=== PATIENT | male | born 1985 | race Caucasian/White ===

== ENCOUNTER 2021-12-29 17:02 | Emergency (ER) | payer BC ==
[~2021-12-29] VITALS: Ht 182.9 cm; Wt 129.3 kg
[2021-12-29 17:25] VITALS: BP 141/68
[2021-12-29] MEDS ORDERED: NS 1000ML 1,000 ML IV STA (17:37)
--- NOTE | 2021-12-29 17:40 | ER.PDOC ---
General Chief Complaint: General Complaint Stated Complaint: SOB/RAPID HEART RATE Time seen by MD: 17:39 Source: patient Exam Limitations: no limitations History of Present Illness Initial Comments Shortness of breath with rapid heart rate. Patient feels that she is dehydrated. He has been working in the heat all day without drinking much water. He denies chest pain. He has a headache. No fever or chills. Timing/Duration: 4-6 hours Severity: moderate Activities at Onset: activity/exertion Prior Episodes/Possible Cause: no prior episodes Associated Symptoms: denies symptoms Allergies: Coded Allergies: No Known Allergies (Unverified , 12/29/21) Past Medical History Medical History: no pertinent history Surgical History: no surgical history Family History Significant Family History: no pertinent family hx Social History Smoking: non-smoker Alcohol Use: rarely Drug Use: none Review of Systems Constitutional: no symptoms reported EENTM: no symptoms reported Respiratory: see HPI Cardiovascular: see HPI Gastrointestinal: no symptoms reported Genitourinary: no symptoms reported All Other Systems: Reviewed and Negative Physical Exam General Appearance: No Apparent Distress, WD/WN HEENT: PERRL/EOMI, Normal ENT Inspection, TMs Normal, Pharynx Normal Neck: Non-Tender, Full Range of Motion, Supple, Normal Inspection Respiratory: chest non-tender, lungs clear, normal breath sounds, no respiratory distress, no accessory muscle use Cardiovascular: Normal Peripheral Pulses, Regular Rate, Rhythm, No Edema, No Gallop, No JVD, No Murmur, Tachycardia Gastrointestinal: Normal Bowel Sounds, No Organomegaly, No Pulsatile Mass, Non Tender, Soft Extremities: Normal Range of Motion, Non-Tender, Normal Inspection, No Pedal Edema, No Calf Tenderness, Normal Capillary Refill 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 (12/29/21 17:37) D-Dimer (12/29/21 17:37) Xr Chest 1v (12/29/21 17:37) Ekg-Routine (12/29/21 17:37) Troponin I High Sensitivity (12/29/21 17:37) Lactic Acid(Ml) (12/29/21 17:37) Covid19 Antigen Brittanie Cari (12/29/21 17:37) 0.9 % Sodium Chloride (Ns 1000ml) (12/29/21 17:37) 0.9 % Sodium Chloride (Ns 1000ml) (12/29/21 17:53) Metoprolol Tartrate (Lopresser) (12/29/21 19:11) Metoprolol Tartrate (Lopresser) (12/29/21 19:13) Vital Signs Date Time Temp Pulse Resp B/P (MAP) Pulse Ox O2 Delivery O2 Flow Rate FiO2 12/29/21 19:18 141 150/89 12/29/21 17:25 98.7 128 20 96 12/29/21 17:25 98.7 128 20 96 Room Air* 0 21 12/29/21 17:25 98.7 128 20 Administered Medications Medications (Trade) Dose Ordered Sig/Amrgarita Route PRN Reason Start Time Stop Time Status Last Admin Dose Admin Metoprolol Tartrate (Lopresser) 5 mg STAT STAT IVP 12/29/21 19:11 12/29/21 19:12 DC 12/29/21 19:18 5 MG Sodium Chloride 1,000 ml @ 1,200 mls/hr Q50M STAT IV 12/29/21 17:37 12/29/21 18:26 DC 12/29/21 17:54 1,200 MLS/HR Laboratory Tests Test 12/29/21 17:43 12/29/21 17:58 White Blood Count 7.0 10^3/uL (4.5-11.0) Red Blood Count 5.09 10^6/uL (4.50-5.90) Hemoglobin 14.8 g/dL (13.9-16.3) Hematocrit 44.7 % (37.0-53.0) Mean Corpuscular Volume 87.8 fL (78-100) Mean Corpuscular Hemoglobin 29.1 pg (26-34) Mean Corpuscular Hemoglobin Concent 33.1 g/dL (33-36.5) Red Cell Distribution Width 12.8 % (11.5-14.5) Platelet Count 172 10^3/uL (150-400) Mean Platelet Volume 11.5 fL (7.8-11.0) H Neutrophils (%) (Auto) 75.0 % (41.0-85.0) Lymphocytes (%) (Auto) 10.4 % (24.0-44.0) L Monocytes (%) (Auto) 10.9 % (5.0-12.0) Neutrophils # (Auto) 5.2 10^3/uL (1.8-7.7) Lymphocytes # (Auto) 0.73 10^3/uL1 (1.0-4.8) L Monocytes # (Auto) 0.8 10^3/uL (0.3-0.8) Absolute Immature Granulocyte (auto 0.03 10^3 u/L (0-2) Absolute Eosinophils (auto) 0.2 10^3/uL (0.0-0.2) Immature Granulocytes % 0.40 % (0.00-0.50) Eosinophils % 2.7 % (0.0-5.0) Basophils % 0.6 % (0.0-0.2) H Basophils # 0.0 10^3/uL (0.0-0.1) Prothrombin Time 9.9 SEC (9.1-11.5) Prothrombin Time INR (Non-Therap) 1.0 Activated Partial Thromboplast Time 28.7 SEC (22.5-33.1) D-Dimer < 0.19 mg/L (0.19-0.49) L Sodium Level 135 mmol/L (132-145) Potassium Level 3.8 mmol/L (3.6-5.2) Chloride Level 100.0 mmol/L (96-109) Carbon Dioxide Level 27.4 mmol/L (20.0-32) Anion Gap 11.4 Blood Urea Nitrogen 15 mg/dL (7-18) Creatinine 1.21 mg/dL (0.59-1.40) Estimated GFR () 83.1 (>/=60) Est GFR (CKD-EPI)(Non-Afr [place]) 68.6 (>/=60) BUN/Creatinine Ratio 12.0 Glucose Level 99 mg/dL (70-110) Lactic Acid Level 1.0 mmol/L (0.5-1.9) Calcium Level 8.7 mg/dL (8.4-10.5) Total Bilirubin 0.8 mg/dL (0.2-1.0) Aspartate Amino Transferase (AST) 25 U/L (0-35) Alanine Aminotransferase (ALT) 54 U/L (12-78) Alkaline Phosphatase 86 U/L (50-136) Total Creatine Kinase 298 U/L (39-308) Creatine Kinase MB 1.0 ng/mL (0.5-3.6) Troponin I High Sensitivity < 4 ng/L (0-75) Pro-B-Type Natriuretic Peptide 14 pg/mL (0-125) Total Protein 8.0 g/dL (6.4-8.2) Albumin 3.9 g/dL (3.4-5.0) Globulin 4.1 Albumin/Globulin Ratio 0.951 SARS-CoV-2 Antigen (Rapid) POSITIVE (NEGATIVE) *A Progress Progress Chest x-ray shows pulmonary vascular congestion without edema. No focal consolidation. COVID-19 is positive. D-dimer is less than 0.19. Troponin is normal. Chemistry normal. CBC normal. BNP 14. Lactate 1.0. Patient received IV fluids and metoprolol because of tachycardia. Heart rate down to 115. He is feeling better to go home. His blood pressure also improved to 147/84. ER DEPART Departure Time of Disposition: 19:36 Disposition: 01 HOME / SELF CARE / HOMELESS Impression: Primary Impression: COVID-19 virus infection Additional Impressions: Tachycardia Dehydration Elevated blood pressure reading Condition: Improved Referrals: PCP,UNKNOWN (PCP) PRIMARY CARE PROVIDER Additional Instructions: Vitamin C, D and zinc [id number] as directed Push fluids at home Self quarantine for 5 days Follow-up with your PCP in 2 to 3 days Keep your blood pressure diary Return to ED if worsening symptoms or concerns Duration or Time Spent with Pa: 60 min Problem Qualifiers DEEP BONILLA MD Dec 29, 2021 17:40
[2021-12-29] MEDS ORDERED: NS 1000ML 1,000 ML ONE (17:53)
--- NOTE | 2021-12-29 17:56 | PCM.EKG ---
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
[2021-12-29 18:02] LABS: BASOPHIL % 0.6 % (0.0-0.2); EOSINOPHIL # 0.2 10^3/uL (0.0-0.2); EOSINOPHIL % 2.7 % (0.0-5.0); LYMPHOCYTES # 0.73 10^3/uL1 (1.0-4.8); LYMPHOCYTES % 10.4 % (24.0-44.0); MEAN CORP HGB 29.1 pg (26-34); MONOCYTES # 0.8 10^3/uL (0.3-0.8); MONOCYTES % 10.9 % (5.0-12.0); NEUTROPHIL # 5.2 10^3/uL (1.8-7.7); PLATELET COUNT 172 10^3/uL (150-400); RED CELL DISTRIBUTION WIDTH 12.8 % (11.5-14.5)
--- NOTE | 2021-12-29 18:22 | DIREP ---
PROCEDURE:CHEST 1 VIEW COMPARISON:None. INDICATIONS:SOB FINDINGS: LUNGS/PLEURA:No significant pulmonary parenchymal abnormalities. No focal consolidation, pleural effusion, or pneumothorax. VASCULATURE:Mild pulmonary vascular congestion. CARDIAC:Normal. No cardiac silhouette abnormality or cardiomegaly. MEDIASTINUM:Normal. No visible mass or adenopathy. BONES:Normal. No fracture or visible bony lesion. OTHER:Negative. CONCLUSION:Pulmonary vascular congestion without overt edema. No focal consolidation. Dictated by: Broderick Gusman M.D. on 12/29/2021 at 06:20 PM
[2021-12-29 18:33] LABS: CARBON DIOXIDE 27.4 mmol/L (20.0-32); GLUCOSE 99 mg/dL (70-110)
--- NOTE | 2021-12-29 18:47 | NUR ---
CRITICAL LAB COVID POSITIVE. REPORTED TO DR. ADAME. AWAITING NEW ORDERS.
[2021-12-29] MEDS ORDERED: LOPRESSER IVP STA (19:11)
[2021-12-29] MEDS ORDERED: LOPRESSER ONE (19:13)
--- NOTE | 2021-12-29 19:44 | NUR ---
DC vital signs pulse 118 BP 147/84 resp 20
--- NOTE | 2021-12-29 19:45 | NUR ---
IV IV 20 demond discontinued catheter tip intact. dressing applied.
== END 2021-12-29 19:35 | disposition home or self-care (01) ==
LOC: ER 17:02
DX: U07.1 COVID-19 (principal); R00.0 Tachycardia, unspecified; E86.0 Dehydration; R03.0 Elevated blood-pressure reading, without diagnosis of hypertension
CPT/HCPCS: 71045; 80053; 82550; 82553; 83605; 83880; 84484; 85025; 85379; 85610; 85730; 87426; 93005; 96361; 96374; 99284; J3490; J7030